=== PATIENT | male | born 1950 | race Caucasian/White ===

== ENCOUNTER → 2017-09-13 12:55 | Outpatient (CLI) | payer MEDICARE, BC ==
[2015-05-06 08:05] VITALS: BMI 36.6
--- NOTE | ~2017-09-13 | EC ---
PATIENT:JESSICA BAER II DATE OF SERVICE: 09/13/17 SEX: M MEDICAL RECORD: [id number] DATE OF : [birth year] LOCATION:D.[facility] AGE OF PATIENT: 66 ADMISSION DATE: 09/13/17 REFERRING PHYSICIAN: INTERPRETING PHYSICIAN: HIMA WOODWARD MD ECHOCARDIOGRAM REPORT ECHO CHARGES 4 ECHO COMPLETE Date: 09/13 CLINICAL DIAGNOSIS: DYSPNEA HX OF CAD/STENTS/HTN ECHOCARDIOGRAPHIC MEASUREMENTS (adult normal given) AC root (d.<3.7cm) 3.9 cm LV Septum d (<1.2 cm> 1.7 cm Valve Excursion 1.9 cm LV Septum (systole) 1.8 cm Left Atria (s.<4.0cm> 4.1 cm LVPW d(<1.2cm) 1.9 cm RV (d.<2.3cm) 3.8 cm LVPW (sytole) 2.1 cm LV diastole(<5.6CM) 5.3 cm MV E-F(>70mm/sec) cm LV systole 3.3 cm LVOT Diameter 2.2 cm MV exc.(>10mm) 2.7 cm Est.ejection fraction (50-75%) % DOPPLER: LVIT cm/sec A 56.0 cm/sec E 114 cm/sec LA cm/sec RVSP 41 mmHg LVOT 110 cm/sec AOP1/2T m/s Asc. Ao 161 cm/sec RVOT 106 cm/sec RA cm/sec PA 146 cm/sec AV Gradient Peak 10.39mmHg AV Mean 5.29 mmHg AV Area 2.6 cm MV Gradient Peak 8.83 mmHg MV Mean 2.90 mmHg MV Area cm COMMENTS: Conference Services Coordinator: Dee CRUZ Aircraft Seat Upholsterer: 1 Dr. Woodward TAPE# PACS Pericardial Effusion N DATE OF SERVICE: 09/13/2017 FINDINGS: 1. Left ventricular chamber size is within normal limits. Left ventricular systolic function is normal. Overall ejection fraction is estimated at 55% to 60%. 2. Left atrium is mildly enlarged at 4.1 cm. Right atrium and right ventricular chamber sizes are as well mildly enlarged. 3. Valvular structures have normal structure and motion. 4. Doppler interrogation only reveals mild tricuspid regurgitation. No other ECHOCARDIOGRAM REPORT [id number] JESSICA BAERWOOD II valvular insufficiency or stenosis. Pulmonary systolic pressure is estimated at 41 mmHg. 5. No evidence of pericardial effusion or left ventricular thrombus. TRANSINT:[id number] Voice Confirmation ID: [id number] DOCUMENT ID: [id number] 09/20/2017 Edited for date of service, [email or web address]. HIMA WOODWARD MD at 1056 CC: [id number] DICTATION DATE: 09/14/17 0958 COO & CO FOUNDER: 09/14/17 1137 DEP CLI 09/13/[address] [address]
[~2017-09-13 12:55] MED LIST: BAYER CHEWABLE81 MG PO; CALTRATE 600 M600 M1 PO; CARDIZEM CD240 MG PO; COUMADIN7.5 MG PO; COZAAR50 MG PO; FLUTICASONE PRO16 GM NASAL; GLUCOPHAGE1000 MG PO; LIPITOR10 MG PO; MAG-OX 400 MG400 MG PO; PLAVIX75 MG PO; POTASSIUM99 M1 PO; TIKOSYN250 MCG PO; ZYRTEC10 MG PO
== END | disposition home or self-care (01) ==
LOC: D.RT 09-08 08:00 → D.ECHO 09-08 09:00 → D.RAD 09-08 09:30 → D.ECHO 12:55
DX: R06.09 Other forms of dyspnea (principal)

== ENCOUNTER → 2017-11-29 10:20 | Outpatient (CLI) | payer MEDICARE, BC ==
[2015-05-06 08:05] VITALS: BMI 36.6
[2017-11-30 14:24] LABS: ANA REFLEX - DIRECT Negative (Negative)
== END | disposition home or self-care (01) ==
LOC: D.CT 10:20
PROVIDERS: Internal Medicine Pulmonary Disease
DX: R94.2 Abnormal results of pulmonary function studies (principal)

== ENCOUNTER 2018-10-24 10:59 | Observation (INO) | payer MEDICARE, BC ==
[~2018-10-24] VITALS: Ht 177.8 cm; Wt 127.3 kg
--- NOTE | ~2018-10-24 | EC ---
PATIENT:JESSICA BAER II DATE OF SERVICE: 10/24/18 SEX: M MEDICAL RECORD: [id number] DATE OF : [birth year] LOCATION:D.M2 D.212 AGE OF PATIENT: 68 ADMISSION DATE: 10/24/18 REFERRING PHYSICIAN: INTERPRETING PHYSICIAN: HIMA HARRIS MD ECHOCARDIOGRAM REPORT ECHO CHARGES 4 ECHO COMPLETE Date: 10/25/18 CLINICAL DIAGNOSIS: ECHOCARDIOGRAPHIC MEASUREMENTS (adult normal given) AC root (d.<3.7cm) 3.5 cm LV Septum d (<1.2 cm> 1.2 cm Valve Excursion 2.0 cm LV Septum (systole) 1.9 cm Left Atria (s.<4.0cm> 3.9 cm LVPW d(<1.2cm) 1.4 cm RV (d.<2.3cm) 2.6 cm LVPW (sytole) 2.2 cm LV diastole(<5.6CM) 5.4 cm MV E-F(>70mm/sec) cm LV systole 2.9 cm LVOT Diameter 2.3 cm MV exc.(>10mm) cm Est.ejection fraction (50-75%) % DOPPLER: LVIT cm/sec A 48.0 cm/sec E 88.0 cm/sec LA cm/sec RVSP 24.4 mmHg LVOT 89.0 cm/sec AOP1/2T m/s Asc. Ao 141 cm/sec RVOT 61.0 cm/sec RA cm/sec PA 84.0 cm/sec AV Gradient Peak 8.0 mmHg AV Mean 4.3 mmHg AV Area 2.5 cm MV Gradient Peak 4.3 mmHg MV Mean 1.3 mmHg MV Area cm COMMENTS: Ring Barker Operator: Melisa FRANKLIN Forensic Locksmith: 3 Dr. Dominguez TAPE# PACS Pericardial Effusion N DATE OF SERVICE: 10/25/2018 PROCEDURE: Echocardiogram. FINDINGS: 1. Left ventricular chamber size is within normal limits. Left ventricular systolic function is normal. Overall ejection fraction estimated at 55%. 2. Left atrium, right atrium and right ventricular chamber sizes are within normal limits. 3. Valvular structures have normal structure and motion. ECHOCARDIOGRAM REPORT [id number] JESSICA BAER II 4. Doppler interrogation reveals trace mitral regurgitation, mild tricuspid regurgitation, no other valvular insufficiency or stenosis. Pulmonary systolic pressure is estimated at 24 mmHg. 5. No evidence of pericardial effusion or left ventricular thrombus. TRANSINT:[id number] Voice Confirmation ID: [id number] DOCUMENT ID: [id number] HIMA HARRIS MD CC: [id number] DICTATION DATE: 10/26/18840 POLICE CLERK: 10/26/18951 DIS IN 10/25/18 [place] [id number] [place] [id number]
[2018-10-24] MEDS ORDERED: ELIQUIS5 MG PO (11:12)
[2018-10-24] MEDS ORDERED: SYMBASTATIN (11:12)
[2018-10-24] MEDS ORDERED: PIOGLITAZONE15 MG PO (11:13)
[2018-10-24 11:46] LABS: BASOPHILS 0.1 % (0-2); EOSINOPHILS 0.8 % (0-7); HEMATOCRIT 42.6 % (42.0-54.0); HEMOGLOBIN 14.3 g/dL (13.5-17.5); IMMATURE GRANULOCYTES 0.5 % (0-5); LYMPHOCYTES 17.4 % (15-50); MCH 33.8 pg (26.0-34.0); MCHC 33.6 g/dL (31.0-37.0); MCV 100.7 fL (80.0-100.0); MEAN PLATELET VOLUME 9.8 fL (7.4-10.4); MONOCYTES 6.9 % (2-11); NEUTROPHILS 74.3 % (40-80); PLATELET COUNT 212 10x3/uL (130-400); RBC 4.23 10x6/uL (4.20-6.10); RDW 13.3 % (11.5-14.5); WBC 8.5 10x3/uL (4.8-10.8)
[2018-10-24 11:54] LABS: APTT 29.2 SECONDS (22.8-39.4); INR 1.23 (0.85-1.17)
[2018-10-24 11:56] VITALS: BP 140/63
[2018-10-24 12:03] LABS: ALBUMIN 3.7 g/dL (3.4-5.0); ALKALINE PHOSPHATASE 69 U/L (46-116); ALT (SGPT) 21 U/L (10-68); BILIRUBIN - TOTAL 0.56 mg/dL (0.2-1.3); CALC OSMOLALITY 277 mosm/kg (275-300); CALCIUM 8.9 mg/dL (8.5-10.1); CARBON DIOXIDE 27.4 mmol/L (21.0-32.0); CHLORIDE - SERUM 98 mmol/L (98-107); CREATININE - SERUM 0.8 mg/dL (0.6-1.3); GLUCOSE 152 mg/dL (74-106); POTASSIUM - SERUM 3.6 mmol/L (3.5-5.1); SODIUM 137 mmol/L (136-145); UREA NITROGEN 15 mg/dL (7-18); eGFR NON AFRICAN AMERICAN > 90 mL/min (90-120)
[2018-10-24 12:12] LABS: CKMB 1.9 U/L (0.0-3.6); CREATINE KINASE 54 UL (21-232); TROPONIN-I < 0.017 ng/mL (0.000-0.060)
[2018-10-24 14:12] LABS: CKMB 1.8 U/L (0.0-3.6); CREATINE KINASE 57 UL (21-232)
[2018-10-24 14:13] LABS: TROPONIN-I < 0.017 ng/mL (0.000-0.060)
--- NOTE | 2018-10-24 14:13 | NUR ---
ARRIVED FROM ER VIA WC. AWAKE AND ALERT. NO DISTRESS.
[2018-10-24 15:14] VITALS: BP 115/47; BMI 40.2
--- NOTE | 2018-10-24 15:15 | NUR ---
SP MURRAY RN IN ROOM FINISHING ADMIT. PATIENT STATES THAT HE FEELS MUCH BETTER AT THIS TIME. WILL MONITOR.
--- NOTE | 2018-10-24 15:52 | NUR ---
SAMMI DELGADO APN IN ROOM AT THIS TIME TALKING TO PATIENT AND .
[2018-10-24 16:11] VITALS: Ht 177.8 cm; Wt 127.3 kg
[2018-10-24] MEDS ORDERED: BENADRYL25 MG PO (16:21)
[2018-10-24] MEDS ORDERED: ZOCOR40 MG PO (16:23)
[2018-10-24] MEDS ORDERED: BUMETANIDE0.5 MG PO (16:24)
[2018-10-24] MEDS ORDERED: ASCORBIC ACID500 MG PO (16:25)
[2018-10-24] MEDS ORDERED: LEVEMIR IN100 UNITS/ (16:26)
[2018-10-24 16:30] VITALS: BP 146/57
--- NOTE | 2018-10-24 17:18 | NUR ---
PATIENT INFORMATION FOR BYSTOLIC GIVEN TO PATIENT.
--- NOTE | 2018-10-24 19:15 | NUR ---
PT LAYING IN BED. IS AAO. DENIES ANY NEEDS. NO S/S OF DISTRESS. BEDLOW AND CALL LIGHT IN REACH. 2L O2 NC. PT WILL CALL FOR ASSIST WHEN NEEDED. WILL CPOC
[2018-10-24 21:16] VITALS: BP 137/53
--- NOTE | 2018-10-24 22:06 | NUR ---
FSBS IS 183 NO INSULIN GIVEN. PT REFUSED. STATES HE JUST TAKES LEVEMIR IN THE MORNING. EDUCATION GIVEN ON MEDICATIONS PT VERBALIZED UNDERSTANDING. DENIES ANY QUESTIONS OR CONCERNS. PT WILL CALL FOR ASSIST WHEN NEEDED. WILL CPOC
[2018-10-24 23:31] LABS: CKMB 1.1 U/L (0.0-3.6); CREATINE KINASE 57 UL (21-232)
[2018-10-24 23:39] LABS: TROPONIN-I < 0.017 ng/mL (0.000-0.060)
[2018-10-25 00:40] VITALS: BP 138/61
[2018-10-25 05:38] VITALS: BP 132/61
--- NOTE | 2018-10-25 06:29 | NUR ---
FSBS IS 170 LEVEMIR GIVEN ORDERED. 75 UNITS. PT VERBALIZED UNDERSTANDING. STATES THAT IS HIS HOME DOSE. REFUSES ANY REGULAR INSULIN. STATES ONLY TAKES LEVEMIR AT HOME. PT HAS NO S/S OF DISTRESS. DENIES ANY NEEDS. SNACK OFFERED. PT WILL CALL FOR ASSIST WHEN NEEDED. [facility]
[2018-10-25 06:48] LABS: ALBUMIN 3.2 g/dL (3.4-5.0); ALKALINE PHOSPHATASE 63 U/L (46-116); ALT (SGPT) 21 U/L (10-68); BILIRUBIN - TOTAL 0.42 mg/dL (0.2-1.3); CALC OSMOLALITY 283 mosm/kg (275-300); CALCIUM 9.1 mg/dL (8.5-10.1); CARBON DIOXIDE 31.6 mmol/L (21.0-32.0); CHLORIDE - SERUM 101 mmol/L (98-107); CKMB 0.9 U/L (0.0-3.6); CREATINE KINASE 44 UL (21-232); CREATININE - SERUM 0.8 mg/dL (0.6-1.3); GLUCOSE 168 mg/dL (74-106); POTASSIUM - SERUM 3.6 mmol/L (3.5-5.1); PROTEIN - SERUM 7.1 g/dL (6.4-8.2); SODIUM 139 mmol/L (136-145); TROPONIN-I < 0.017 ng/mL (0.000-0.060); UREA NITROGEN 17 mg/dL (7-18); eGFR NON AFRICAN AMERICAN > 90 mL/min (90-120)
[2018-10-25 07:30] LABS: BASOPHILS 0.2 % (0-2); EOSINOPHILS 1.9 % (0-7); HEMATOCRIT 40.4 % (42.0-54.0); HEMOGLOBIN 13.4 g/dL (13.5-17.5); IMMATURE GRANULOCYTES 0.3 % (0-5); LYMPHOCYTES 22.2 % (15-50); MCH 33.7 pg (26.0-34.0); MCHC 33.2 g/dL (31.0-37.0); MCV 101.5 fL (80.0-100.0); MEAN PLATELET VOLUME 10.1 fL (7.4-10.4); MONOCYTES 8.9 % (2-11); NEUTROPHILS 66.5 % (40-80); PLATELET COUNT 226 10x3/uL (130-400); RBC 3.98 10x6/uL (4.20-6.10); RDW 13.6 % (11.5-14.5)
[2018-10-25 08:00] VITALS: BP 157/71
--- NOTE | 2018-10-25 08:01 | HP ---
PATIENT: JESSICA BAER II MEDICAL RECORD: [id number] ACCOUNT: [id number] LOCATION:[address] : [birth year] ADMISSION DATE: 10/24/18 PCP: SHAWNA MANTILLA MD HISTORY AND PHYSICAL EXAMINATION DATE OF ADMISSION: 10/24/2018 CHIEF COMPLAINT: Shortness of breath. HISTORY OF PRESENT ILLNESS: This is a 68-year-old white male with a known history of coronary artery disease and atrial fibrillation, who has undergone ablation times 2 in the past; diabetes; and hypertension, who presents to the Emergency Department stating he is "out of rhythm." He denies any chest pain, but admits to episodes of shortness of breath. He feels "empty" and he feels "lightheaded" and dizzy. He feels like he has been in and out of atrial fibrillation over the last couple of days. 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 He has been wearing it for a couple of weeks. He states he just does not feel right. He is assigned to observation with cardiology consulting. PAST MEDICAL HISTORY: Diabetes, hypertension, hyperlipidemia, coronary artery disease, skin cancer, atrial fibrillation, sleep apnea. PAST SURGICAL HISTORY: Appendectomy, multiple cardiac stents, and cardiac ablation times 2. ALLERGIES: ATENOLOL, LISINOPRIL, AND VERAPAMIL. HOME MEDICATIONS: Include simvastatin 20 mg at bedtime, Eliquis 5 mg twice a day, Bumex 2 mg once a day, ktxw-gzx-zsrzayf potassium 99 mg once a day, Actos 30 mg once a day, losartan 50 mg once a day, diltiazem 240 mg once a day, Mag-Ox 400 mg once a day, and Levemir insulin 75 units once a day. HABITS: Former smoker. He admits to drinking "socially;" but when pressed, he drinks a glass of whiskey a night that is about 4 finger widths tall. He admits it is probably too much, but he states he does not sleep well if he does not drink that much. He denies any illicit drug use. SOCIAL HISTORY: Retired from the [employer]. He is single. FAMILY HISTORY: Father at 59. He had a ruptured aortic aneurysm. Mother at 73. She had COPD complications. REVIEW OF SYSTEMS: GENERAL: No major weight changes. HEENT: No particular sinus or allergy problems. RESPIRATORY: He sees Dr. Castillo, so probably has a component of COPD or asthma. He has been on different types of breathing medicines and states they really do not work. He does have a nebulizer machine at home and basically he pours some hydrogen peroxide liquid into the machine and uses that. He states it helps him breathe better. GASTROINTESTINAL: No significant problems there. GENITOURINARY: No significant problems there. MUSCULOSKELETAL: Few joint aches and pains. HISTORY AND PHYSICAL [id number] JESSICA BAER II NEUROLOGIC: No migraines. No seizures. PSYCHIATRIC: Denies depression or melancholia. PHYSICAL EXAMINATION: VITAL SIGNS: Today, temperature 99.1, pulse 68, respirations 18, blood pressure 146/57, and O2 sat is 97%. GENERAL: He is awake, alert, and does not appear in acute distress at this time. HEENT: Grossly within normal limits. NECK: Supple. No JVD or bruit. HEART: Regular rate and rhythm currently. No murmur. LUNGS: Clear. ABDOMEN: Soft, flat, and nontender. EXTREMITIES: Trace if any edema. LABORATORY WORK: CBC with white count of 8500, hemoglobin 14.3, and hematocrit 42.6. INR 1.23. Basic metabolic panel is all normal. Magnesium is 2.0. ProBNP is 54. Chest x-ray shows mildly indistinct pulmonary vascularity, otherwise unremarkable. Troponin less than 0.017 times 2. D-dimer is less than 0.27. ASSESSMENT: 1. Paroxysmal atrial fibrillation, status post ablation times 2. 2. Dysrhythmias. EKG shows frequent PVCs. 3. History of coronary artery disease. 4. Diabetes. PLAN: Telemetry and echo. Cardiology has been consulted. Beta-bryce has been added at this point. Other recommendations per cardiology. TRANSINT:[id number] Voice Confirmation ID: [id number] DOCUMENT ID: [id number] SHAWNA MANTILLA MD at 0801 CC: [id number] DICTATION DATE: 10/24/181918 DATE NIGHT SITTER: 10/24/182014 ADM IN [place] [address] [place] [address]
--- NOTE | 2018-10-25 08:12 | NUR ---
ROUNDING DONE WITH PATIENT SITTING UP IN BED EATING BREAKFAST. GLASSES ON. RIGHT UPPER ARM PIV SEEN WITH SALINE LOCK, ORANGE SWAB CAP IN USE. ON ROOM AIR AT THIS TIME. ON HEART MONITOR SHOWING SR, HR 72. HOME CPAP AT BEDSIDE.
[2018-10-25 11:00] VITALS: BP 126/57
--- NOTE | 2018-10-25 13:04 | NUR ---
FINISHED LUNCH TRAY, DENIES ANY NEEDS. STILL WANTING TO GO HOME TODAY. WILL CONTINUE TO MONITOR.
--- NOTE | 2018-10-25 13:41 | NUR ---
WARM BATH CLOTHS GIVEN TO PATIENT. WILL CHANGE LINENS PAST WASHING UP. TO USE CALL LIGHT WHEN READY FOR ME TO CHANGE. DENEIS FURTHER NEEDS.
--- NOTE | 2018-10-25 15:16 | NUR ---
SAMMI DELGADO, BRE IN TO SEE PATIENT.
[2018-10-25 16:13] VITALS: BP 128/65
--- NOTE | 2018-10-25 17:32 | NUR ---
SITTING UP IN CHAIR EATING SUPPER. DENIES NEEDS.
[2018-10-25] MEDS ORDERED: BYSTOLIC5 MG PO (17:48)
--- NOTE | 2018-10-25 19:24 | NUR ---
SALINE LOCK REMOVED WITH CATH TIP INTACT. VERBAL AND WRITTEN DISCHARGE INSTRUCTIONS GIVEN TO PATIENT. DISCHARGED HOME VIA WHEELCHAIR.
--- NOTE | 2018-10-26 07:56 | MORECARE ---
CASE MANAGEMENT DISCHARGE SUMMARY PATIENT: JESSICA BAER RIAZ II UNIT: [id number] ADM DATE: 10/24/18 AGE: 68 : [birth year] SEX: M ROOM/BED: D.2124 AUTHOR: NADYA WEST PHYSICIAN: REFERRING PHYSICIAN: SHAWNA MANTILLA MD DATE OF SERVICE: 10/26/18 Discharge Plan Patient Name: JESSICA BAER [facility] 1950 Planned Disposition: Home Anticipated Discharge Date: 10/25/18 Discharge Date: 10/25/2018 Expected LOS: 1 Initial Reviewer: [email or web address] Initial Review Date: 10/26/2018 Generated: 10/26/18 8:56 am Coverage Notice Reviewer: [email or web address] Graciela Reinoso Notice Issued Date-Time: 10/24/2018 13:25 Notice Type: Medicare Outpatient Observation Notice Notice Delivered To: Patient Relationship to Patient: Adaptive Physical Educator Name: Delivery Method: HAND - Hand Delivered Trini Days: Prior Verbal Notification: Recipient Understood Notice: Recipient Signature: Med Rec Note Co-signed by Attending: Coverage Notice Comment: Patient Name: JESSICA BAER Page [phone] at 0756 All edits/amendments must be made on the electronic document DICTATION DATE: 10/26/18755 OTOLARYNGOLOGY NURSE: MARY 10/26/18 0756 RPT#: [id number] DC DATE:10/25/18 STATUS: DIS IN [facility] [address] [place] [address] END OF REPORT
== END 2018-10-25 19:26 | disposition home or self-care (01) ==
LOC: D.ER 10:59 → D.M2 13:35 → OBSVTIME 13:35 → D.M2 10-25 19:26
PROVIDERS: Family Medicine; ADMIT Family Medicine; ATTEND Family Medicine
DX: I48.0 Paroxysmal atrial fibrillation (principal); I25.10 Atherosclerotic heart disease of native coronary artery without angina pectoris; E11.9 Type 2 diabetes mellitus without complications; R42 Dizziness and giddiness

== ENCOUNTER → 2019-05-21 08:30 | Outpatient (CLI) | payer MEDICARE, BC ==
[2018-10-24 16:11] VITALS: BMI 40.2
[~2019-05-21 08:30] MED LIST changes: +ASCORBIC ACID500 MG PO; +BENADRYL25 MG PO; +BUMETANIDE0.5 MG PO; +BYSTOLIC5 MG PO; +ELIQUIS5 MG PO; +LEVEMIR IN100 UNITS/; +PIOGLITAZONE15 MG PO; +SYMBASTATIN; +ZOCOR40 MG PO
== END | disposition home or self-care (01) ==
LOC: D.MAMMO 08:30
PROVIDERS: ATTEND Family Medicine
DX: N64.52 Nipple discharge (principal)

== ENCOUNTER → 2019-05-28 07:04 | Outpatient (CLI) | payer MEDICARE, BC ==
[2018-10-24 16:11] VITALS: BMI 40.2
== END | disposition home or self-care (01) ==
LOC: D.US 07:04
PROVIDERS: ATTEND Family Medicine
DX: N64.9 Disorder of breast, unspecified (principal)

== ENCOUNTER 2019-09-05 08:05 | Day surgery (SDC) | payer MEDICARE, BC ==
--- NOTE | 2019-09-03 10:06 | NUR ---
VITALIY NOTE: PATIENT REPORTS CURRENTLY TAKING ELIQUIS 5MG BID WITH LAST DOSE THIS AM. DR. LEIGH'S NURSE, JUVENCIO, NOTIFIED. STATES SHE WILL INFORM DR. LEIGH & NOTIFY THE PATIENT WHETHER OR NOT HE NEEDS TO HOLD ELIQUIS PRIOR TO SURGERY. PATIENT INFORMED OF ABOVE.
[2019-09-03 10:33] LABS: ANION GAP 10.4 mmol/L (8-16); BASOPHILS 0.2 % (0-2); CALCIUM 9.3 mg/dL (8.5-10.1); CARBON DIOXIDE 32.5 mmol/L (21.0-32.0); CREATININE - SERUM 1.1 mg/dL (0.6-1.3); EOSINOPHILS 1.7 % (0-7); HEMATOCRIT 41.4 % (42.0-54.0); IMMATURE GRANULOCYTES 0.5 % (0-5); MCHC 33.8 g/dL (31.0-37.0); MCV 109.5 fL (80.0-100.0); MEAN PLATELET VOLUME 9.6 fL (7.4-10.4); MONOCYTES 8.8 % (2-11); NEUTROPHILS 57.8 % (40-80); POTASSIUM - SERUM 3.9 mmol/L (3.5-5.1); RBC 3.78 10x6/uL (4.20-6.10); RDW 12.6 % (11.5-14.5); WBC 9.2 10x3/uL (4.8-10.8)
[2019-09-03 10:34] LABS: PLATELET COUNT 294 10x3/uL (130-400)
[~2019-09-05] VITALS: Ht 177.8 cm; Wt 126.1 kg
--- NOTE | ~2019-09-05 | OP ---
PATIENT NAME: JESSICA BAER II MEDICAL RECORD: [id number] :48 LOCATION:D.OPS ADMISSION DATE: SURGEON: JACK LEIGH MD DATE OF OPERATION: 09/05/2019 PREOPERATIVE DIAGNOSIS: Infected sebaceous cyst of the left upper quadrant abdominal wall. POSTOPERATIVE DIAGNOSIS: Infected sebaceous cyst of the left upper quadrant abdominal wall. Please see dimensions below. PROCEDURE: Excisional debridement with marsupialization and packing of infected sebaceous cyst of the left upper quadrant. The dimensions of the excision, including margins, measures 3.5 x 2.4 cm and included skin and subcutaneous tissue as well as the sebaceous cyst cavity and also keratin debris. SURGEON: Jack Leigh MD HEAVY TRUCK MECHANIC: Ashutosh Domingo, [facility]. BLOOD LOSS: 25 cc. ANESTHESIA: General. COMPLICATIONS: None. The risks, possible complications and alternatives to the procedure were explained to the patient. He elects to proceed. The discussion specifically included, but was not limited to, bleeding requiring an emergency reoperation, infection, recurrence of the sebaceous cyst. OPERATIVE COURSE: The patient was conveyed the operating room electively on 09/05/2019. General anesthesia was induced by the anesthesia staff. The patient's abdomen was sterilely prepped and draped. Through the use of double curvilinear incisions, I sharply excised the skin and subcutaneous tissue overlying the sebaceous cyst and then I curettaged out the cyst cavity. Cultures were obtained. There was quite a good bit of keratin material present within the sebaceous cyst. I then marsupialized the wound with a running locking 3-0 Vicryl Rapide suture. I irrigated with hydrogen peroxide. Hemostasis was achieved with the electrocautery. The dimensions of the debridement are listed above. I packed the wound with iodoform gauze that was soaked in a Dakin's solution. The patient was then extubated and conveyed to post-anesthesia care unit where he was in stable condition. TRANSINT:[id number] Voice Confirmation ID: [id number] DOCUMENT ID: [id number] OPERATIVE REPORT [id number] JESSICA BAER II JACK LEIGH MD CC: [id number] DICTATION DATE: 09/05/19 1208 NATIONAL SALES CONSULTANT: 09/05/19 1733 [facility] 09/05/19 [place] [id number] [place] [address]
[2019-09-05] MEDS ORDERED: PROPRANOLOL HCL20 MG PO (08:25)
[2019-09-05] MEDS ORDERED: MEXITIL 150 MG150 MG PO (08:26)
[2019-09-05] MEDS ORDERED: PIOGLITAZONE15 MG PO (08:28)
[2019-09-05] MEDS ORDERED: VIBRAMYCIN 100100 MG PO (08:29)
[2019-09-05 08:31] VITALS: BP 145/63; Ht 177.8 cm; Wt 126.1 kg
--- NOTE | 2019-09-05 12:01 | NUR ---
PT HAIR CLIPPED IN H.ROOM PER WANDER
--- NOTE | 2019-09-05 12:01 | NUR ---
1152 RECEIVED REPORT FROM Huong CRABTREE RN TAKING OVER CARE
--- NOTE | 2019-09-05 13:54 | NUR ---
1330 IV REMOVED AND INSTRUCTIONS GIVEN. ASSISTED WITH GETTING DRESSED
== END 2019-09-05 13:45 | disposition home or self-care (01) ==
LOC: D.OPS 08:05 → D.PAN 09:30 → D.OPS 09:30 → D.PAN 12:00 → D.OPS 13:45
PROVIDERS: ATTEND Surgery
DX: L72.3 Sebaceous cyst (principal); E78.5 Hyperlipidemia, unspecified; I10 Essential (primary) hypertension; I48.91 Unspecified atrial fibrillation; E11.9 Type 2 diabetes mellitus without complications; J44.9 Chronic obstructive pulmonary disease, unspecified; Z79.4 Long term (current) use of insulin

== ENCOUNTER → 2019-11-19 10:43 | Outpatient (CLI) | payer MEDICARE, BC ==
[~2019-11-19 10:43] MED LIST changes: +MEXITIL 150 MG150 MG PO; +PROPRANOLOL HCL20 MG PO; +VIBRAMYCIN 100100 MG PO
== END | disposition home or self-care (01) ==
LOC: D.HCCARDIO 10:43
PROVIDERS: ATTEND Internal Medicine Cardiovascular Disease
DX: I20.9 Angina pectoris, unspecified (principal)